=== PATIENT | female | born 1950 | race Caucasian/White ===

== ENCOUNTER 2021-05-13 19:39 | Inpatient (IN) | payer MEDICARE, MEDICAID ==
[~2021-05-13] VITALS: Ht 162.6 cm; Wt 72.6 kg
[2021-05-14] MEDS ORDERED: OLANZAPINE 10 MG/VIAL IM ONE (05:15)
[2021-05-14] MEDS ORDERED: LORAZEPAM 2MG/ML CPJ IM ONE ×2 (05:15→05:45)
[2021-05-14] MEDS ORDERED: DIPHENHYDRAMINE 50MG/ML VIAL IM ONE ×2 (05:15→05:45)
[2021-05-14 08:29] LABS: BASOPHILS % 0.4 % (0.0-2.0); EOSINOPHILS % 0.4 % (0.0-5.0); HEMATOCRIT. 37.8 % (36.0-48.0); HEMOGLOBIN. 12.3 g/dL (12.0-16.0); LYMPHOCYTES % 13.3 % (20.0-50.0); MEAN CORPUSCULAR HEMOGLOBIN 28.2 pg (28.0-32.0); MEAN CORPUSCULAR VOLUME 86.6 fL (81.0-99.0); MEAN PLATELET VOLUME 8.5 fl (7.4-10.4); NEUTROPHILS % 78.9 % (40.0-76.0); PLATELET 233 x1000/uL (130-400); RED BLOOD CELL COUNT 4.37 mill/uL (4.2-5.4); RED CELL DISTRIBUTION WIDTH 13.1 % (11.6-14.6)
[2021-05-14 08:36] LABS: CHLORIDE 107 mEq/L (98-107)
[2021-05-14 08:40] LABS: ETHANOL BLOOD < 10 mg/dL
[2021-05-14 08:44] LABS: CREATINE KINASE 314 IU/L (26-192)
[2021-05-14] MEDS ORDERED: LORAZEPAM 0.5MG TABLET PO NR (08:45)
[2021-05-14 08:52] LABS: CLARITY URINE CLOUDY (CLEAR); COLOR URINE YELLOW (YELLOW); KETONES URINE NEGATIVE (NEGATIVE); LEUKOCYTE ESTERASE URINE 3+ (NEGATIVE); NITRITE URINE NEGATIVE (NEGATIVE); OCCULT BLOOD URINE TRACE (NEGATIVE); PROTEIN URINE TRACE (NEGATIVE); SPECIFIC GRAVITY URINE 1.017 (1.005-1.030); UROBILINOGEN URINE 0.2 E.U./dL (0.2-1.0)
[2021-05-14] MEDS ORDERED: LORAZEPAM 1MG TABLET PO PRN (09:00)
[2021-05-14 09:08] LABS: CANNABINOID URINE SCREEN NEGATIVE (NEGATIVE); METHADONE URINE SCREEN NEGATIVE (NEGATIVE); OPIATES URINE SCREEN NEGATIVE (NEGATIVE); PHENCYCLIDINE URINE SCREEN NEGATIVE (NEGATIVE)
[2021-05-14 09:09] LABS: *AMPHETAMINES SCREEN URINE NEGATIVE (NEGATIVE); *BARBITURATES SCREEN URINE NEGATIVE (NEGATIVE); *BENZODIAZEPINES SCREEN URINE NEGATIVE (NEGATIVE); *COCAINE SCREEN URINE NEGATIVE (NEGATIVE)
[2021-05-14 10:35] LABS: PROTHROMBIN TIME 11.2 sec (9.6-11.0)
[2021-05-14] MEDS: FLUOXETINE HCL 10 MG CAPSULE PO SCH (13:35)
[2021-05-14] MEDS ORDERED: AMLODIPINE 10MG TABLET PO NR (19:45)
[2021-05-15] MEDS: FLUOXETINE HCL 10 MG CAPSULE PO SCH (11:38)
[2021-05-15] MEDS ORDERED: SODIUM CHLORIDE 0.9% 1,000 ML IV ONE (13:45)
[2021-05-15] MEDS ORDERED: CEFTRIAXONE 1 G PREMIX 50 ML IV ONE (13:45)
[2021-05-15] MEDS ORDERED: ACETAMINOPHEN 325MG TABLET PO PRN (15:30)
[2021-05-15] MEDS: THIAMINE HCL 100MG TABLET PO SCH (19:07)
[2021-05-16] MEDS: CLONIDINE 0.1MG TABLET PO PRN (07:05)
[2021-05-16] MEDS ORDERED: CEFTRIAXONE 1 G PREMIX 50 ML IV SCH (09:00)
[2021-05-16] MEDS ORDERED: CEFTRIAXONE 1,000 MG in DEXTROSE 5% WATER 50 ML IV SCH (09:00)
[2021-05-16 10:30] VITALS: BP 116/54
[2021-05-16] MEDS: FOLIC ACID 1MG TABLET PO SCH (10:53)
[2021-05-16] MEDS: FLUOXETINE HCL 10 MG CAPSULE PO SCH (10:53)
[2021-05-16] MEDS: THIAMINE HCL 100MG TABLET PO SCH (10:53)
[2021-05-16 11:00] VITALS: BP 116/54
[2021-05-16 16:29] LABS: BASOPHILS % 0.6 % (0.0-2.0); EOSINOPHILS % 2.6 % (0.0-5.0); HEMATOCRIT. 36.7 % (36.0-48.0); HEMOGLOBIN. 12.1 g/dL (12.0-16.0); LYMPHOCYTES % 24.2 % (20.0-50.0); MEAN CORPUSCULAR HEMOGLOBIN 28.6 pg (28.0-32.0); MEAN CORPUSCULAR VOLUME 86.9 fL (81.0-99.0); MEAN PLATELET VOLUME 8.5 fl (7.4-10.4); MONOCYTES % 8.7 % (2.0-8.0); NEUTROPHILS % 63.9 % (40.0-76.0); PLATELET 244 x1000/uL (130-400); RED BLOOD CELL COUNT 4.22 mill/uL (4.2-5.4); RED CELL DISTRIBUTION WIDTH 13.2 % (11.6-14.6)
[2021-05-16 16:57] LABS: T4 FREE 1.31 ng/dL (0.76-1.46)
[2021-05-16 17:12] LABS: FOLIC ACID (FOLATE) SERUM > 20.00 ng/mL (>5.38)
[2021-05-16 17:18] LABS: VITAMIN B12 SERUM 654 pg/mL (211-911)
[2021-05-16 20:00] VITALS: BP 147/56
[2021-05-17] VITALS: BP 131/53
[2021-05-17 04:00] VITALS: BP 134/56
[2021-05-17] MEDS: MEROPENEM 500 MG in SODIUM CHLORIDE 0.9% 50 ML IV SCH ×4 (06:00→22:16)
[2021-05-17 08:00] VITALS: BP 104/51
[2021-05-17 08:17] LABS: BASOPHILS % 0.4 % (0.0-2.0); EOSINOPHILS % 2.6 % (0.0-5.0); HEMATOCRIT. 35.6 % (36.0-48.0); HEMOGLOBIN. 11.9 g/dL (12.0-16.0); LYMPHOCYTES % 23.7 % (20.0-50.0); MEAN CORPUSCULAR HEMOGLOBIN 29.1 pg (28.0-32.0); MEAN CORPUSCULAR VOLUME 87.3 fL (81.0-99.0); MEAN PLATELET VOLUME 8.7 fl (7.4-10.4); MONOCYTES % 8.3 % (2.0-8.0); PLATELET 251 x1000/uL (130-400); RED BLOOD CELL COUNT 4.08 mill/uL (4.2-5.4); RED CELL DISTRIBUTION WIDTH 13.2 % (11.6-14.6)
[2021-05-17] MEDS: FLUOXETINE HCL 10 MG CAPSULE PO SCH (09:13)
[2021-05-17] MEDS: FOLIC ACID 1MG TABLET PO SCH (09:13)
[2021-05-17] MEDS: THIAMINE HCL 100MG TABLET PO SCH (09:14)
[2021-05-17 12:00] VITALS: BP 158/53
[2021-05-17] MEDS: SODIUM CHLORIDE 0.9% 1,000 ML IV SCH ×2 (15:10→22:18)
[2021-05-17 16:00] VITALS: BP 173/62
[2021-05-17 20:00] VITALS: BP 139/64
[2021-05-18] VITALS (7 sets, daily range): BP systolic 139–176; BP diastolic 54–98
[2021-05-18] MEDS: MEROPENEM 500 MG in SODIUM CHLORIDE 0.9% 50 ML IV SCH ×3 (05:03→21:32)
[2021-05-18 07:31] LABS: BASOPHILS % 0.5 % (0.0-2.0); EOSINOPHILS % 2.2 % (0.0-5.0); HEMATOCRIT. 34.3 % (36.0-48.0); HEMOGLOBIN. 11.3 g/dL (12.0-16.0); LYMPHOCYTES % 28.1 % (20.0-50.0); MEAN CORPUSCULAR HEMOGLOBIN 28.6 pg (28.0-32.0); MEAN CORPUSCULAR VOLUME 86.9 fL (81.0-99.0); MEAN PLATELET VOLUME 8.4 fl (7.4-10.4); MONOCYTES % 8.4 % (2.0-8.0); NEUTROPHILS % 60.8 % (40.0-76.0); PLATELET 240 x1000/uL (130-400); RED BLOOD CELL COUNT 3.95 mill/uL (4.2-5.4); RED CELL DISTRIBUTION WIDTH 12.8 % (11.6-14.6)
[2021-05-18] MEDS: FOLIC ACID 1MG TABLET PO SCH (09:14)
[2021-05-18] MEDS: FLUOXETINE HCL 10 MG CAPSULE PO SCH (09:14)
[2021-05-18] MEDS: THIAMINE HCL 100MG TABLET PO SCH (09:14)
[2021-05-18] MEDS: SODIUM CHLORIDE 0.9% 1,000 ML IV SCH (11:55)
[2021-05-18] MEDS ORDERED: CLON0.122 MT (12:42)
[2021-05-18] MEDS ORDERED: AMLO5TAB88 MT (12:42)
[2021-05-18] MEDS ORDERED: FLUO20CA39 MT (12:42)
[2021-05-18] MEDS: CLONIDINE 0.1MG TABLET PO PRN (16:43)
[2021-05-19] VITALS: BP 155/46
[2021-05-19] MEDS: SODIUM CHLORIDE 0.9% 1,000 ML IV SCH (01:15)
[2021-05-19 04:00] VITALS: BP 132/48
[2021-05-19] MEDS: MEROPENEM 500 MG in SODIUM CHLORIDE 0.9% 50 ML IV SCH ×2 (05:04→15:16)
[2021-05-19 07:25] LABS: BASOPHILS % 0.5 % (0.0-2.0); EOSINOPHILS % 3.1 % (0.0-5.0); HEMATOCRIT. 32.7 % (36.0-48.0); HEMOGLOBIN. 10.8 g/dL (12.0-16.0); LYMPHOCYTES % 27.2 % (20.0-50.0); MEAN CORPUSCULAR HEMOGLOBIN 28.5 pg (28.0-32.0); MEAN CORPUSCULAR VOLUME 86.3 fL (81.0-99.0); MEAN PLATELET VOLUME 8.3 fl (7.4-10.4); NEUTROPHILS % 61.2 % (40.0-76.0); PLATELET 234 x1000/uL (130-400); RED BLOOD CELL COUNT 3.79 mill/uL (4.2-5.4); RED CELL DISTRIBUTION WIDTH 13.1 % (11.6-14.6)
[2021-05-19 08:00] VITALS: BP 137/44
[2021-05-19 08:13] LABS: CHLORIDE 113 mEq/L (98-107)
[2021-05-19] MEDS: FOLIC ACID 1MG TABLET PO SCH (08:33)
[2021-05-19] MEDS: THIAMINE HCL 100MG TABLET PO SCH (08:33)
[2021-05-19] MEDS: FLUOXETINE HCL 10 MG CAPSULE PO SCH (08:33)
[2021-05-19] MEDS ORDERED: LIDOCAINE HCL 1% 10 MG/ML 10ML VIAL ONE (09:07)
[2021-05-19 12:00] VITALS: BP 156/59
[2021-05-19] MEDS ORDERED: SODIUM POLYSTYRENE SULFONATE 15 G/60 ML BOT PO NR (12:30)
[2021-05-19 16:00] VITALS: BP 158/47
[2021-05-19 20:00] VITALS: BP 152/56
[2021-05-19] MEDS: CLONIDINE 0.1MG TABLET PO PRN (21:41)
== END 2021-05-19 21:54 | DRG 605 ==
LOC: EDBD 19:39 → ER 19:39 → MICUSO 05-15 13:49 → EDBEDREQ 05-15 14:08 → EDBEDREQSVC 05-15 14:08 → 6EST 05-16 07:38
PROVIDERS: ADMIT Family Medicine Adult Medicine; ATTEND Family Medicine Adult Medicine
PROC: 02HV33Z Insertion of Infusion Device into Superior Vena Cava, Percutaneous Approach (ICD-10-PCS; principal; 2021-05-19)
PROC: B548ZZA Ultrasonography of Superior Vena Cava, Guidance (ICD-10-PCS; 2021-05-19)
PROC: B5181ZA Fluoroscopy of Superior Vena Cava using Low Osmolar Contrast, Guidance (ICD-10-PCS; 2021-05-19)
DX: S01.81XA Laceration without foreign body of other part of head, initial encounter (principal); N39.0 Urinary tract infection, site not specified; F33.1 Major depressive disorder, recurrent, moderate; N17.9 Acute kidney failure, unspecified; Z16.12 Extended spectrum beta lactamase (ESBL) resistance; R53.1 Weakness; B96.1 Klebsiella pneumoniae [K. pneumoniae] as the cause of diseases classified elsewhere; Z20.822 Contact with and (suspected) exposure to COVID-19; G89.29 Other chronic pain; W18.39XA Other fall on same level, initial encounter; Y93.89 Activity, other specified; Y92.89 Other specified places as the place of occurrence of the external cause; Z59.00 Homelessness unspecified; Z79.899 Other long term (current) drug therapy; Z82.49 Family history of ischemic heart disease and other diseases of the circulatory system; Y99.8 Other external cause status
CPT/HCPCS: 36415; 36573; 71045; 76770; 80048; 82607; 82652; 82746; 84132; 84439; 84443; 85025; 87077; 87186; 87426; 93005; 93306; 96372; 97116; 97162; 97166; 99285; C1725; J0696; J1200; J2060; J2185; J3490; J7030; J7040; J7060